=== PATIENT | male | born 1980 | race Two or more races ===

== ENCOUNTER 2023-03-03 11:24 | Emergency (ER) | payer OTHER ==
[~2023-03-03] VITALS: Ht 175.3 cm; Wt 81.6 kg
[~2023-03-03 11:24] MED LIST: BACTROBAN OINT22 GM TP; CEFADROXIL500 MG PO; KETO10TA2 PO
[2023-03-03] MEDS ORDERED: DICLOFENAC SODI75 MG PO (12:46)
[2023-03-03] MEDS ORDERED: MEDROLPACK PO (12:46)
== END 2023-03-03 14:27 | disposition left against medical advice (07) ==
LOC: ER 11:24
DX: M54.50 Low back pain, unspecified (principal)